=== PATIENT | female | born 1960 | race Caucasian/White ===

== ENCOUNTER 2024-03-23 14:19 | Outpatient (RCR) | payer OTHER, SELFPAY ==
[2024-03-23] MEDS: RECLAST 100 IV (14:57)
[2024-03-23 15:15] VITALS: BP 125/72
== END 2024-03-24 09:56 | disposition home or self-care (01) ==
LOC: OID 14:19
PROVIDERS: ATTENDING PHYSICIAN Internal Medicine Endocrinology, Diabetes & Metabolism
DX: M81.0 Age-related osteoporosis without current pathological fracture (principal)
CPT/HCPCS: 96365; J3489

== ENCOUNTER 2025-03-27 12:45 | Outpatient (RCR) | payer MEDICARE, SELFPAY ==
[2025-03-27 13:00] VITALS: BP 127/68
[2025-03-27] MEDS: RECLAST 100 IV (13:15)
[2025-03-27 14:20] VITALS: BP 111/60
== END 2025-03-28 11:04 | disposition home or self-care (01) ==
LOC: OID 12:45
PROVIDERS: ATTENDING PHYSICIAN Internal Medicine Endocrinology, Diabetes & Metabolism
DX: M81.8 Other osteoporosis without current pathological fracture (principal)
CPT/HCPCS: 96365; J3489